=== PATIENT | male | born 1985 | race Caucasian/White ===

== ENCOUNTER 2016-12-12 16:42 | Emergency (ER) | payer BC, OTHER ==
[~2016-12-12] VITALS: Ht 180.3 cm; Wt 64.0 kg
[2016-12-12 16:48] VITALS: Ht 180.3 cm; Wt 64.0 kg
[2016-12-12] MEDS ORDERED: IBUPROFEN 600 MG TAB PO ONE (17:30)
--- NOTE | 2016-12-12 17:35 | ERD ---
ER Documentation Chief Complaint Date/Time DATE: 12/12/16 TIME: 17:33 Chief Complaint intermittent head pain with cough and throat pain x 1 week HPI This is a 31-year-old male presenting to emergency department for intermittent headache with cough, sore throat, rhinorrhea and rhinitis 1 week. Patient states he has had a bitemporal headache. Head pain does not radiate. Patient also states he has sinus pain and pressure with palpation. Denies dizziness, loss of consciousness, head injury or head trauma. Patient states he has had body aches. Has had significant rhinorrhea and rhinitis. Has had temperature of 100-102F at home. No difficulty swallowing or drooling. Has been taking Tylenol with last dose about 1 hour ago. Cough is productive with clear sputum. Patient states cough is worse at night when he lays down. No visual changes, double vision or loss of vision. No erythema or swelling of face. No chest pain, shortness of breath or difficulty breathing. Patient is talking in complete sentences ROS All systems reviewed and are negative except as per history of present illness. Medications Home Meds Active Scripts Ibuprofen* (Motrin*) 400 Mg Tab, 400 MG PO Q6, #15 TAB Prov:JANEL PUENTE NP 12/12/16 Amoxicillin/Potassium Clav (Amox-Clav 875-125 mg Tablet) 875-125 mg Tab, 1 TAB PO BID for 7 Days, #14 TAB Prov:JANEL PUENTE NP 12/12/16 Allergies Allergies: Coded Allergies: No Known Allergy (Unverified , 12/12/16) PMhx/Soc Medical and Surgical Hx: pt denies Medical Hx, pt denies Surgical Hx Hx Alcohol Use: No Hx Substance Use: No Hx Tobacco Use: No Physical Exam Vitals Vital Signs Date Time Temp Pulse Resp B/P Pulse Ox O2 Delivery O2 Flow Rate FiO2 12/12/16 16:48 97.2 74 18 123/74 100 Physical Exam Const: NAD, alert Head: Atraumatic Eyes: Normal Conjunctiva ENT: Normal External Ears, Nose and Mouth. Neck: Full range of motion..~ No meningismus. Resp: Clear to auscultation bilaterally. No wheezing, rhonchi or crackles Cardio: Regular rate and rhythm, no murmurs Abd: Soft, non tender, non distended. Normal bowel sounds Skin: No petechiae or rashes Back: No midline or flank tenderness Ext: No cyanosis, or edema Neur: Awake and alert Psych: Normal Mood and Affect Results 24 hrs Current Medications Medications (Trade) Dose Ordered Sig/Ginger Route PRN Reason Start Time Stop Time Status Last Admin Dose Admin Ibuprofen (Motrin) 600 mg ONCE ONCE PO 12/12/16 17:30 12/12/16 17:31 DC 12/12/16 17:38 Procedures/MDM ED COURSE: The patient was stable throughout ED course. I kept the patient and/or family informed of laboratory and diagnostic imaging results throughout the ED course. MDM: This is a 31-year-old, well-appearing, male presenting to the emergency department for sinus pain, sinus pressure, headache, rhinitis, rhinorrhea, intermittent fevers and cough 1 week. Patient states he has had fevers of 100- 10 2F at home. Patient is afebrile upon arrival to ED. Patient states he has been taking Tylenol at home with no relief of pain. No periorbital edema or swelling. Patient wears glasses and states he has not had any change in vision. No visual changes, double vision or loss of vision. No altered mental status or abnormal extraocular movements. No head injury or trauma. Vital signs remained stable. Patient was given ibuprofen while in the ED. Patient remains alert and oriented to person place and time on the ED. Diagnosis is acute sinusitis. Low suspicion for intracranial mass, intracranial bleeding, CVA, TIA or other emergent etiologies. Patient is appropriate for outpatient management and we given prescription for Augmentin and ibuprofen. Instructed patient to follow-up with primary care provider in the next 24-48 hours for reassessment and additional management. Return to ED for any high fever, chest pain, difficulty breathing, shortness breath, wheezing, vomiting, diarrhea, abdominal pain or any new or worsening symptoms. Patient verbalizes understanding. All questions answered at discharge. Departure Diagnosis: Primary Impression: Headache Headache type: unspecified Headache chronicity pattern: acute headache Intractability: not intractable Qualified Code: R51 - Acute nonintractable headache, unspecified headache type Condition: Stable JANEL PUENTE NP Dec 12, 2016 17:35
[2016-12-12] MEDS ORDERED: IBUP400T22 PO (17:46)
[2016-12-12] MEDS ORDERED: AMOX1TAB10 PO (17:46)
== END 2016-12-12 18:07 | disposition home or self-care (01) ==
LOC: FTE 16:42
DX: R51 Headache (principal)
CPT/HCPCS: 99283

== ENCOUNTER 2018-03-20 16:41 | Emergency (ER) | END 2018-03-20 18:57 | disposition left against medical advice (07) ==